=== PATIENT | female | born 1950 | race Caucasian/White ===

== ENCOUNTER 2017-08-06 13:16 | Emergency (ER) | payer SELFPAY ==
[~2017-08-06] VITALS: Ht 162.6 cm; Wt 70.0 kg
[2017-08-06 13:30] VITALS: PULSE 87; RESP 16; TEMP 98.8; O2SAT 99
[2017-08-06] MEDS ORDERED: SERO100T PO (15:59)
[2017-08-06] MEDS ORDERED: BUPR100CR PO (15:59)
[2017-08-06] MEDS ORDERED: LAMO25TA PO (15:59)
--- NOTE | 2017-08-06 16:01 | PD ---
HPI Chief Complaint: Medication Refill Request Time Seen by Provider: 15:37 Travel History International Travel<30 days: No Contact w/Intl Traveler<30days: No Traveled to known affect area: No History of Present Illness HPI 66y female presents to the ED with request of trazodone refill. Patient states that she saw her psychiatrist, Dr. Thai Hwang who prescribed her Seroquel 60 mg QHS as an addition to her lamotrigine, Wellbutrin, and Prozac for depression and anxiety. States that he did not refill the trazodone and did not intend to. Says she took the Seroquel last night expecting to sleep and she says that she was unable to sleep. Says she has tried hydralazine previously but this did not help her sleep either. Says her previous psychiatrist, Dr. Everett, prescribed this Trazedone and had been on this for approximately 6 months. Patient has no other complaints today. PFSH Past Medical History Depression: Yes Diminished Hearing: No Psychiatric: Yes Past Surgical History Surgical History: No Previous Surgery Social History Alcohol Use: No Tobacco Use: No Substance Use: No Allergies-Medications (Allergen,Severity, Reaction): Coded Allergies: lithium (Verified Allergy, Severe, 08/06/17) zolpidem (Verified Allergy, Severe, 08/06/17) Reported Meds & Prescriptions Reported Meds & Active Scripts Active Reported Lamotrigine 25 Mg Tab 25 Mg PO BID Wellbutrin SR 12 HR (Bupropion HCl) 100 Mg Tab 100 Mg PO Q12HR Seroquel (Quetiapine Fumarate) 100 Mg Tab 100 Mg PO DAILY Review of Systems Except as stated in HPI: all other systems reviewed are Neg Physical Exam Narrative GENERAL: Well-developed, well-nourished in no apparent distress SKIN: Focused skin assessment warm/dry. HEAD: Atraumatic. Normocephalic. EYES: Pupils equal and round. No scleral icterus. No injection or drainage. ENT: No nasal bleeding or discharge. NECK: Trachea midline. No JVD. MUSCULOSKELETAL: No obvious deformities. No clubbing. No cyanosis. No edema. NEUROLOGICAL: Awake and alert. No obvious cranial nerve deficits. Motor grossly within normal limits. Normal speech. PSYCHIATRIC: Appropriate mood and affect; insight and judgment normal. Data Data Last Documented VS Vital Signs Date Time Temp Pulse Resp B/P (MAP) Pulse Ox O2 Delivery O2 Flow Rate FiO2 08/06/17 13:30 98.8 87 16 99 MDM Medical Decision Making Medical Screen Exam Complete: Yes Emergency Medical Condition: No Differential Diagnosis Anxiety, insomnia, depression Narrative Course 66y female presents to the ED with request of trazodone refill. Patient states that she saw her psychiatrist, Dr. Thai Hwang who prescribed her Seroquel 60 mg QHS as an addition to her lamotrigine, Wellbutrin, and Prozac for depression and anxiety. States that he did not refill the trazodone and did not intend to. Says she took the Seroquel last night expecting to sleep and she says that she was unable to sleep. Says she has tried hydralazine previously but this did not help her sleep either. Since her previous psychiatrist, Dr. Everett, prescribed this medication and had been on this for approximately 6 months. Patient has no other complaints today. Vital signs stable. Physical exam findings consistent with a 66-year-old female in no acute process. I explained to the patient and her friend the dangers of mixing and changing medications especially against Dr. Hwang's recommendations. Advised that she should follow-up with her psychiatrist Wednesday. Patient and friend seem reasonable and understood my concerns. Pt will follow with her PCP and psychiatrist regarding her medications. A medical screening exam was performed: At the time of evaluation the presenting medical condition was determined not to be of an emergent nature. The patient was given the option of receiving additional care, but declined. Patient was given options for additional community resources from which to obtain care. The Patient Has Been advised to seek medical attention for their presenting complaint. The patient has been advised to return to the ER at any time if an emergent condition develops. Diagnosis Primary Impression: Insomnia Qualified Codes: G47.09 - Other insomnia Disposition: 01 DISCHARGE HOME Condition: Stable Sheron Louis Aug 06, 2017 16:01
== END 2017-08-06 16:09 | disposition left against medical advice (07) ==
LOC: NEPA 13:16
DX: G47.09 Other insomnia (principal)
CPT/HCPCS: 99281